=== PATIENT | male | born 1965 | race Hispanic/Latino ===

== ENCOUNTER → 2023-04-21 | Outpatient (CLI) | payer OTHER | END | disposition home or self-care (01) | LOC: RAH 16:10 | PROVIDERS: ATTEND Internal Medicine | DX: M25.561 Pain in right knee (principal); M25.551 Pain in right hip; Z98.890 Other specified postprocedural states | CPT/HCPCS: 73552; 73560 ==

== ENCOUNTER → 2024-02-18 | Outpatient (CLI) | payer MEDICARE ==
[2024-02-18 15:27] LABS: CREATININE 0.8 mg/dL (0.5-1.3)
== END | disposition home or self-care (01) ==
LOC: LAB 14:22
PROVIDERS: ATTEND Internal Medicine Gastroenterology
DX: R77.2 Abnormality of alphafetoprotein (principal)
CPT/HCPCS: 36415; 82565; 84520

== ENCOUNTER → 2024-03-19 | Outpatient (CLI) | payer MEDICARE ==
[~2024-03-19] MED LIST: IOHEXOL 350 MG/ML 100ML INFUS..BTL IV ONE
== END | disposition home or self-care (01) ==
LOC: RAH 08:00
PROVIDERS: ATTEND Internal Medicine Gastroenterology
DX: K80.20 Calculus of gallbladder without cholecystitis without obstruction (principal); R16.1 Splenomegaly, not elsewhere classified; K76.89 Other specified diseases of liver; R77.2 Abnormality of alphafetoprotein; I86.8 Varicose veins of other specified sites
CPT/HCPCS: 74170; Q9967

== ENCOUNTER 2024-05-18 06:32 | Day surgery (SDC) | payer MEDICARE ==
[~2024-05-18] VITALS: Ht 170.2 cm; Wt 76.2 kg
[2024-05-18] VITALS (16 sets, daily range): BP systolic 97–159; BP diastolic 63–86; PULSE 64–80; RESP 14–20
[2024-05-18] MEDS ORDERED: LOSA25TA41 PO (07:42)
[2024-05-18] MEDS ORDERED: SERT-440 PO (07:42)
[2024-05-18] MEDS ORDERED: OMEP20CA12 PO (07:42)
[2024-05-18] MEDS ORDERED: FAMO-290 PO (07:42)
[2024-05-18] MEDS ORDERED: LACT10SO95 PO (07:42)
[2024-05-18] MEDS ORDERED: CALC500T36 PO (07:42)
[2024-05-18] MEDS: 0.9%NACL 1000ML 1,000 ML IV ONE (07:43)
[2024-05-18] MEDS ORDERED: PROPOFOL 10 MG/ML 20ML VIAL IV ONE (09:16)
[2024-05-18] MEDS: ONDANSETRON 4MG INJ ONE (09:49)
[2024-05-18] MEDS: MEPERIDINE-PF 25 MG/ML SYG ONE (09:49)
== END 2024-05-18 11:25 | disposition home or self-care (01) ==
LOC: ENDO 06:32 → DAH 06:32 → ENDO 11:25
PROVIDERS: ATTEND Internal Medicine Gastroenterology
DX: K74.60 Unspecified cirrhosis of liver (principal); I85.10 Secondary esophageal varices without bleeding; K29.50 Unspecified chronic gastritis without bleeding; K76.6 Portal hypertension; K31.89 Other diseases of stomach and duodenum; I10 Essential (primary) hypertension; F32.A Depression, unspecified; R77.2 Abnormality of alphafetoprotein; B19.20 Unspecified viral hepatitis C without hepatic coma; K80.20 Calculus of gallbladder without cholecystitis without obstruction; D64.9 Anemia, unspecified; K40.90 Unilateral inguinal hernia, without obstruction or gangrene, not specified as recurrent; K42.9 Umbilical hernia without obstruction or gangrene; F17.210 Nicotine dependence, cigarettes, uncomplicated; F41.9 Anxiety disorder, unspecified; M19.90 Unspecified osteoarthritis, unspecified site; Z79.899 Other long term (current) drug therapy
CPT/HCPCS: 43244; 82948 ×2; 43239; J7030 ×2; J2704; J2405; J2175; A4620; A4215; A4223; A7002; A4222; A4221; A4663; A4606; J3490

== ENCOUNTER 2024-08-12 07:14 | Day surgery (SDC) | payer MEDICARE ==
[2024-08-12] VITALS (8 sets, daily range): BP systolic 129–163; BP diastolic 66–76; PULSE 62–75; RESP 13–20; TEMP 97.1–97.9
[~2024-08-12] VITALS: Ht 170.2 cm; Wt 81.6 kg
[~2024-08-12 07:14] MED LIST changes: +CALC500T36 PO; +FAMO-290 PO; -IOHEXOL 350 MG/ML 100ML INFUS..BTL IV ONE; +LACT-451 PO; +LOSA25TA41 PO; +OMEP20CA12 PO; +SERT-440 PO
[2024-08-12] MEDS ORDERED: FURO20TA4 PO (08:58)
[2024-08-12] MEDS ORDERED: SERT-439 PO (09:00)
[2024-08-12] MEDS ORDERED: LACT10SO85 PO (09:00)
[2024-08-12] MEDS ORDERED: LOSA50TA64 PO (09:00)
[2024-08-12] MEDS ORDERED: LORA10TA7 PO (09:00)
[2024-08-12] MEDS: 0.9%NACL 1000ML 1,000 ML IV ONE (09:02)
[2024-08-12] MEDS ORDERED: proPOFol 10 MG/ML 20ML VIAL IV ONE ×2 (10:39→10:43)
[2024-08-12] MEDS: LIDOCAINE HCL 2% VISCOUS 15 ML UDCUP PO ONE (11:20)
[2024-08-12] MEDS: LIDOCAINE HCL 2% VISCOUS 15 ML UDCUP ONE (11:20)
== END 2024-08-12 11:50 | disposition home or self-care (01) ==
LOC: DAH 07:14
PROVIDERS: ATTEND Internal Medicine Gastroenterology
DX: K74.60 Unspecified cirrhosis of liver (principal); I85.10 Secondary esophageal varices without bleeding; K76.6 Portal hypertension; I86.4 Gastric varices; K31.89 Other diseases of stomach and duodenum; R77.2 Abnormality of alphafetoprotein; B19.20 Unspecified viral hepatitis C without hepatic coma; K80.20 Calculus of gallbladder without cholecystitis without obstruction; K64.9 Unspecified hemorrhoids; K59.00 Constipation, unspecified; K40.90 Unilateral inguinal hernia, without obstruction or gangrene, not specified as recurrent; K42.9 Umbilical hernia without obstruction or gangrene; I10 Essential (primary) hypertension; E11.9 Type 2 diabetes mellitus without complications; F41.9 Anxiety disorder, unspecified; F32.A Depression, unspecified; M19.90 Unspecified osteoarthritis, unspecified site; Z79.899 Other long term (current) drug therapy
CPT/HCPCS: 43244; J7030 ×2; J2704 ×2; A4620; A4215 ×2; A4223; A4222; A4221; A4663; J3490